=== PATIENT | male | born 1935 | race African-American/Black ===

== ENCOUNTER 2022-07-29 12:47 | Emergency (ER) | payer MEDICARE ==
[~2022-07-29] VITALS: Ht 185.4 cm; Wt 80.0 kg
[2022-07-29 12:52] VITALS: BP 131/73
== END 2022-07-29 14:37 | disposition left against medical advice (07) ==
LOC: ER 12:47
DX: Z53.21 Procedure and treatment not carried out due to patient leaving prior to being seen by health care provider (principal)